=== PATIENT | female | born 1955 | race Caucasian/White ===

== ENCOUNTER 2016-08-16 12:08 | Emergency (ER) | payer OTHER ==
[2016-08-16 12:51] VITALS: BP 123/72; PULSE 69; TEMP 98.2; BMI 23.0
[2016-08-16] MEDS ORDERED: KETOROLAC TROMETHAMINE 60 MG/2 ML VIAL IM ONE (14:08)
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
[2016-08-16] MEDS ORDERED: KETOROLAC TROMETHAMINE 60 MG/2 ML VIAL ONE (14:10)
== END 2016-08-16 16:03 ==
LOC: JERFT 12:08
PROC: 3E0233Z Introduction of Anti-inflammatory into Muscle, Percutaneous Approach (ICD-10-PCS; principal; 2016-08-16)
DX: S13.4XXA Sprain of ligaments of cervical spine, initial encounter (principal); S50.11XA Contusion of right forearm, initial encounter; S40.021A Contusion of right upper arm, initial encounter; M54.16 Radiculopathy, lumbar region; E78.5 Hyperlipidemia, unspecified; V43.52XA Car driver injured in collision with other type car in traffic accident, initial encounter; Y93.89 Activity, other specified; Y92.410 Unspecified street and highway as the place of occurrence of the external cause
CPT/HCPCS: 72050-TC; 73060-TC-RT; 73070-TC-RT; 73090-TC-RT; 99281-25

== ENCOUNTER 2016-11-19 07:20 | Day surgery (SDC) | payer OTHER ==
[2016-11-15 13:15] VITALS: BMI 23.0
[2016-11-19] MEDS ORDERED: ROPIVACAINE HCL 0.5% 30ML VIAL ONE (08:00)
[2016-11-19] MEDS ORDERED: MIDAZOLAM HCL 2 MG/2 ML SINGLE DOSE VIAL ONE (08:00)
[2016-11-19] MEDS ORDERED: DEXAMETHASONE SOD PHOSPHATE/PF 10 MG/ML SDV ONE (08:00)
[2016-11-19] MEDS ORDERED: PROPOFOL 20 ML ONE ×3 (09:10)
[2016-11-19] MEDS ORDERED: KETOROLAC TROMETHAMINE 30 MG/1 ML VIAL ONE (09:12)
[2016-11-19] MEDS ORDERED: ONDANSETRON 4 MG/2 ML VIAL ONE (09:12)
[2016-11-19] MEDS ORDERED: DEXAMETHASONE SOD PHOSPHATE 4 MG/1 ML VIAL ONE (09:12)
[2016-11-19] MEDS ORDERED: ceFAZolin SODIUM 1 GM VIAL ONE (09:48)
[2016-11-19] MEDS ORDERED: ePHEDrine SULFATE 50 MG/1 ML AMPULE ONE (10:07)
[2016-11-19] MEDS ORDERED: oxyCODONE HCL 5 MG TABLET PO PRN ×2 (10:11)
[2016-11-19] MEDS ORDERED: ONDANSETRON 4 MG/2 ML VIAL IVPUSH PRN (10:11)
[2016-11-19] MEDS ORDERED: LACTATED RINGERS SOLUTION 1,000 ML IV SCH (10:15)
--- NOTE | 2016-11-19 11:06 | OP ---
DATE OF OPERATION: 11/19/2016 SURGEON: Rosemarie Jama MD ORNAMENT SETTER: KIMBERLYN Batista PREOPERATIVE DIAGNOSES: 1. Right shoulder impingement syndrome. 2. Right shoulder acromioclavicular joint disease. 3. Right shoulder superior labrum tear anterior to posterior with synovitis. POSTOPERATIVE DIAGNOSES: 1. Right shoulder impingement syndrome. 2. Right shoulder acromioclavicular joint disease. 3. Right shoulder superior labrum tear anterior to posterior with synovitis. PROCEDURE: 1. Right shoulder arthroscopy with arthroscopic subacromial decompression. 2. Right shoulder arthroscopy with debridement/major (CPT codes 45586 and 03874). FINDINGS: 1. Glenohumeral synovitis. 2. Extensive grade 2 to 3 cartilage on glenoid. 3. Fraying of the subscapularis central portion, partial tearing with attachments intact. 4. Partial biceps tear, supraspinatus, 10%. 5. Type 2 acromion anterolateral spurring. 6. Inferior spur, distal clavicle, acromioclavicular joint disease/minor. 7. Posterior labral fraying. 8. Thickened scar tissue, subacromial space. PROCEDURE: Informed consent was obtained. The patient was taken to the operating room where the upper extremity was prepped and draped in a sterile fashion. Scalene block was performed by Anesthesia. Manipulation under anesthesia allowed for full range of motion. Using standard arthroscopic technique, a posterior incision portal was made, which allowed for introduction of the camera into the glenohumeral joint. Under direct visualization, an anterior incision and portal was made. Extensive and thickened synovitis was debrided. Fraying of the labrum was debrided and superior labrum from anterior to posterior was identified with all loose areas debrided. Any labral tears were taken to stable rim, including identified SLAP lesions. All loose cartilage was debrided. Rotator cuff was identified and evaluated as were the subacromial and bursal surfaces. The posterior incision portal was redirected to the subacromial space, where lateral incision and portal was made. Excessive and thickened synovium was removed throughout the subacromial space including the anterior scar tissue, posterior bursa and lateral bursa. The type 2 acromion was converted to a flattened type 1, removing the anterior and lateral spurring. Accessory portal was made at the acromioclavicular joint, removing the inferior spur of the distal clavicle at the acromioclavicular joint, allowing for a distal clavicle partial resection. The shoulder was once again reexamined; all impingement was removed. The shoulder was drained. A single suture was placed on all portals and a sterile dressing was placed. The patient was transferred to the recovery room without complication. ADDENDUM: Please note that subscapularis had tearing on the anterior surface, the articular surface. This was debrided using both a shaver and Bovie cautery. Eighty percent of the subscapularis was still intact and the attachments were intact. ROSEMARIE JAMA M.D. [id number]
[2016-11-19 11:48] VITALS: TEMP 98.2
[2016-11-19 13:12] VITALS: BP 96/52; PULSE 70
--- NOTE | 2016-11-23 14:31 | PATH ---
Surgical Pathology Report Patient Name: SHANTA SNIDER [facility]. Rec. #: [id number] /Age/Gender: 1955 (Age: 61) / F Account: [id number] Location: [facility] Taken: 11/19/2016 Received: 11/19/2016 Reported: 11/23/2016 Physicians: Iván Ash M.D. Specimen(s) Received LEFT SHOULDER SHAVINGS Clinical History Left rotator cuff tear Final Diagnosis LEFT SHOULDER, ARTHROSCOPIC SHAVING: PORTIONS OF SYNOVIUM, CARTILAGE, SKELETAL MUSCLE AND BONE CONSISTENT WITH ARTHROSCOPIC SHAVINGS. Electronically Signed Manan Maldonado M.D. Gross Description Received in formalin, labeled "left shoulder shavings," is a 4.3 x 3.2 x 0.4 cm. aggregate of ovalle-yellow soft tissue fragments. A inside sales representative portion is submitted in one cassette. 11/22/201611/22/2016
== END 2016-11-19 13:24 | disposition home or self-care (01) ==
LOC: FASU 07:20
PROVIDERS: ATTEND Orthopaedic Surgery
PROC: 0RBJ4ZZ Excision of Right Shoulder Joint, Percutaneous Endoscopic Approach (ICD-10-PCS; principal; 2016-11-19 10:04)
DX: M75.41 Impingement syndrome of right shoulder (principal); M19.011 Primary osteoarthritis, right shoulder; S43.431A Superior glenoid labrum lesion of right shoulder, initial encounter; X58.XXXA Exposure to other specified factors, initial encounter; Y93.9 Activity, unspecified; Y92.9 Unspecified place or not applicable; M65.811 Other synovitis and tenosynovitis, right shoulder
CPT/HCPCS: 88304-TC; 94760

== ENCOUNTER 2016-12-13 09:21 | Emergency (ER) | payer OTHER ==
[2016-12-13 09:26] VITALS: BP 130/74; PULSE 79; TEMP 97.8; BMI 22.6
[2016-12-13] MEDS ORDERED: TRIAMCINOLONE ACET 40MG/1ML VIAL IM ONE (10:00)
[2016-12-13] MEDS ORDERED: TRIAMCINOLONE ACET 40MG/1ML VIAL ONE (10:02)
--- NOTE | 2016-12-13 10:03 | PDOC ---
History of Present Illness - General Chief Complaint: Allergic Reaction Stated Complaint: RASH Time Seen by Provider: 12/13/16 09:57 History Source: Patient Exam Limitations: No Limitations - History of Present Illness Initial Comments: 12/13/16 10:02 c/o itching rash / lesions worsens Associated Symptoms: reports: denies symptoms. denies: chest pain/soreness, cough, facial pain, fever/chills, headache, nasal congestion Past History - Travel Traveled outside of the country in the last 30 days: No Close contact w/someone who was outside of country & ill: No - Past Medical History Allergies/Adverse Reactions: Allergies Allergy/AdvReac Type Severity Reaction Status Date / Time Penicillins Allergy Severe Hives Verified 12/13/16 09:23 Home Medications: Ambulatory Orders Atorvastatin Ca [Lipitor] 20 mg PO Q2D 11/15/16 Calcium Carbonate/Vitamin D3 [Calcium 600 + Vit D Softgel] 1 each PO DAILY 11/15 Multivitamins [Multivit ([facility] Formulary)] 1 tab PO DAILY 11/15/16 Anemia: No Asthma: No Cancer: No Cardiac Disorders: No CVA: No COPD: No CHF: No Dementia: No Diabetes: No GI Disorders: No Disorders: No HTN: No Hypercholesterolemia: Yes Liver Disease: No Seizures: No Thyroid Disease: No - Surgical History Abdominal Surgery: No Appendectomy: No Cardiac Surgery: No Cholecystectomy: No Lung Surgery: No Neurologic Surgery: No Orthopedic Surgery: No - Psycho/Social/Smoking Cessation Hx Anxiety: No Suicidal Ideation: No Smoking History: Current every day smoker Have you smoked in the past 12 months: Yes Number of Cigarettes Smoked Daily: 2 Information on smoking cessation initiated: Yes 'Breaking Loose' booklet given: 12/13/16 Hx Alcohol Use: No Drug/Substance Use Hx: No Substance Use Type: None Hx Substance Use Treatment: No Review of Systems - Review of Systems Able to Perform ROS?: Yes Is the patient limited Nepali proficient: Yes Constitutional: Yes: See HPI. No: Symptoms Reported, Chills, Fever, Malaise HEENTM: Yes: See HPI. No: Symptoms Reported Respiratory: Yes: Symptoms reported ABD/GI: No: Symptoms Reported Integumentary: Yes: Symptoms Reported, See HPI, Lesions, Pruritus (discrete lesions. ), Rash All Other Systems: Reviewed and Negative *Physical Exam - Vital Signs Last Vital Signs Temp Pulse Resp BP Pulse Ox 97.8 F 79 18 130/74 100 12/13/16 09:23 12/13/16 09:23 12/13/16 09:23 12/13/16 09:23 12/13/16 09:23 - Physical Exam General Appearance: Yes: Appropriately Dressed HEENT: positive: WENDY, TMs Normal, Pharynx Normal Neck: positive: Supple, Lymphadenopathy (R), Lymphadenopathy (L). negative: Tender Respiratory/Chest: positive: Lungs Clear, Normal Breath Sounds Gastrointestinal/Abdominal: positive: Tender, Soft Extremity: positive: Normal Inspection Integumentary: positive: Normal Color, Dry, Warm, Other (target areas.) Neurologic: positive: carding utility tender II-XII NML intact, Fully Oriented, Alert, Normal Mood/ Affect Progress Note - Progress Note Progress Note: Contact dermatitis versus insect bites. We'll treat with long-acting steroids as patient already taking antihistamines and referred to dermatology *DC/Admit/Observation/Transfer Diagnosis at time of Disposition: Contact dermatitis Qualifiers: Contact dermatitis type: unspecified Contact dermatitis trigger: unspecified trigger Qualified Code(s): L25.9 - Unspecified contact dermatitis, unspecified cause - Discharge Dispostion Disposition: HOME Condition at time of disposition: Stable Admit: No - Referrals Referrals: Lewis Guzman MD [Primary Care Provider] - - Patient Instructions Printed Discharge Instructions: Summertime Rashes: Poison Brion[place], [place], and [place] Additional Instructions: Rest, keep cool and dry- avoid strenuous activity or hot /humid environments Less hot showers, no abrasive soaps May use heavy creams like Eucerin or Cetaphil to keep skin moist May apply Aveeno, calamine lotion, [id number] hydrocortisone creams as needed for symptoms May use Benadryl at night for antihistamine, Zyrtec/ Luli or Claritin for daytime antihistamine use to help with itching May use [id number] hydrocortisone cream on all areas except face You were given 1 dose of 40mg Kenalog injection. Try to identify cause for rash and avoid exposures Followup with PMD in one week if no resolution Make appointment with finger cobbler for evaluation when possible.
== END 2016-12-13 10:24 | disposition home or self-care (01) ==
LOC: JERFT 09:21
PROC: 3E0233Z Introduction of Anti-inflammatory into Muscle, Percutaneous Approach (ICD-10-PCS; principal; 2016-12-13)
DX: L25.9 Unspecified contact dermatitis, unspecified cause (principal)
CPT/HCPCS: 96372; 99281-25

== ENCOUNTER 2022-05-31 16:01 | Emergency (ER) | payer OTHER ==
[2022-05-31 16:31] VITALS: BP 111/68; PULSE 73; RESP 18; TEMP 98.1; BMI 23.8
[2022-05-31] MEDS ORDERED: KETOROLAC TROMETHAMINE 30 MG/1 ML VIAL IM ONE (17:31)
[2022-05-31] MEDS ORDERED: METHOCARBAMOL 500 MG TABLET PO ONE (17:31)
[2022-05-31] MEDS ORDERED: KETOROLAC TROMETHAMINE 30 MG/1 ML VIAL ONE (17:49)
[2022-05-31] MEDS ORDERED: METHOCARBAMOL 500 MG TABLET ONE (17:49)
== END 2022-05-31 18:05 | disposition home or self-care (01) ==
LOC: JERFT 16:01 → JER 16:01 → JERFT 18:05
PROC: 3E0233Z Introduction of Anti-inflammatory into Muscle, Percutaneous Approach (ICD-10-PCS; principal; 2022-05-31)
DX: S46.211A Strain of muscle, fascia and tendon of other parts of biceps, right arm, initial encounter (principal); X50.0XXA Overexertion from strenuous movement or load, initial encounter
CPT/HCPCS: 99284-25